=== PATIENT | female | born 2005 ===

== ENCOUNTER 2024-02-07 22:46 | Emergency (ER) | payer SELFPAY ==
[2024-02-07 22:50] VITALS: BP 139/87
[2024-02-07 23:27] VITALS: BMI 23.6
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
[2024-02-08] VITALS: BP 106/72
== END 2024-02-08 | disposition home or self-care (01) ==
LOC: EMR 22:46
PROVIDERS: EMERGENCY PHYSICIAN Student in an Organized Health Care Education/Training Program
DX: Z04.1 Encounter for examination and observation following transport accident (principal); V89.2XXA Person injured in unspecified motor-vehicle accident, traffic, initial encounter; Y92.410 Unspecified street and highway as the place of occurrence of the external cause
CPT/HCPCS: 99282